=== PATIENT | female | born 1975 ===

== ENCOUNTER 2017-10-19 18:59 | Emergency (ER) | payer MEDICAID ==
[2017-10-19 19:16] VITALS: RESP 16; TEMP 98.4; O2SAT 100
--- NOTE | 2017-10-19 19:41 | ED PDOC ---
HPI: Female Pain Time Seen by Provider: 10/19/17 19:20 Chief Complaint (Nursing): Female Genitourinary Chief Complaint (Provider): Female Genitourinary History Per: Patient History/Exam Limitations: no limitations Onset/Duration Of Symptoms: Days (x2 days) Current Symptoms Are (Timing): Still Present Additional Complaint(s): 42 y/o female with past medical history of hypertension and hypothyroidism presents to the ED complaining of lower abdominal pain x 2 days. Patient also reports frequency and burning during urination. Denies any further medical complaints. PMD: Ajith Bishop MD Past Medical History Reviewed: Historical Data, Nursing Documentation, Vital Signs Vital Signs: Last Vital Signs Temp 98.4 F 10/19/17 19:12 Pulse 92 H 10/19/17 19:12 Resp 16 10/19/17 19:12 BP 177/87 H 10/19/17 19:12 Pulse Ox 100 10/19/17 19:12 - Medical History PMH: HTN, Hypothyroidism Denies: Chronic Kidney Disease - Surgical History Other surgeries: ovary removed for fibroid/removal cancer cells - Family History Family History: States: Unknown Family Hx - Social History Current smoker - smoking cessation education provided: Yes (light smoker >10 cigarettes daily) Alcohol: Social Drugs: Denies - Immunization History Hx Influenza Vaccination: No Hx Pneumococcal Vaccination: No - Home Medications Home Medications: Ambulatory Orders Medication Instructions Recorded Levothyroxine [Synthroid] 0.025 mg PO DAILY 03/15/15 Losartan [Cozaar] 25 mg PO DAILY 03/15/15 Propranolol [Inderal] 20 mg PO DAILY 03/15/15 amLODIPine [Norvasc] 10 mg PO DAILY 07/21/15 Ciprofloxacin [Cipro] 500 mg PO BID #14 mg 07/24/15 Metronidazole [Flagyl] 500 mg PO Q8 #0 tab 07/24/15 Acetaminophen with Codeine 1 tab PO Q6H PRN #15 tab 10/19/17 [Tylenol with Codeine No. 3 300 mg-30 mg] - Allergies Allergies/Adverse Reactions: Allergies Allergy/AdvReac Type Severity Reaction Status Date / Time naproxen Allergy SWELLING Verified 10/19/17 19:17 Review of Systems ROS Statement: Except As Marked, All Systems Reviewed And Found Negative (As per HPI, otherwise negative) Gastrointestinal: Positive for: Abdominal Pain (lower abdominal pain) Genitourinary Female: Positive for: Frequency, Other (burning during urination) Physical Exam - Reviewed Nursing Documentation Reviewed: Yes Vital Signs Reviewed: Yes - Physical Exam Appears: Positive for: Well, Non-toxic, No Acute Distress Head Exam: Positive for: ATRAUMATIC, NORMAL INSPECTION, NORMOCEPHALIC Skin: Positive for: Normal Color, Warm, Dry Cardiovascular/Chest: Positive for: Regular Rate, Rhythm. Negative for: Murmur Respiratory: Positive for: Normal Breath Sounds. Negative for: Accessory Muscle Use, Respiratory Distress Gastrointestinal/Abdominal: Positive for: Normal Exam, Soft. Negative for: Tenderness Neurologic/Psych: Positive for: Alert, Oriented (x3) - ECG O2 Sat by Pulse Oximetry: 100 (RA) Pulse Ox Interpretation: Normal Medical Decision Making Medical Decision Making: Time: 19:35 Plan: Urine dipstick Urine Reevalauation Time: 19:46 Plan: Abd & pelvis w/o IV contrast Urine culture Urinalysis Reevaluation Right ovarian cyst. No torsion. Urine culture pending. Scribe Attestation: Documented by Aliya Andrew acting as a scribe for Valery Edwards MD. Scribe Attestation: All medical record entries made by the Scribe were at my direction and personally dictated by me. I have reviewed the chart and agree that the record accurately reflects my personal performance of the history, physical exam, medical decision making, and the department course for this patient. I have also personally directed, reviewed, and agree with the discharge instructions and disposition. Disposition - Clinical Impression Clinical Impression: Ovarian cyst - Patient ED Disposition Is Patient to be Admitted: No Counseled Patient/Family Regarding: Diagnosis, Need For Followup, Rx Given - Disposition Disposition: Routine/Home Disposition Time: 23:21 Condition: GOOD Prescriptions: Acetaminophen with Codeine [Tylenol with Codeine No. 3 300 mg-30 mg] 1 tab PO Q6H PRN #15 tab PRN Reason: Pain, Severe (8-10) Instructions: Ovarian Cyst (ED) Forms: [employer] (Lao)
[2017-10-19 20:04] LABS: RBC URINE 11 /hpf (0-3); URINE BILIRUBIN NEGATIVE (NEGATIVE); URINE BLOOD SMALL (NEGATIVE); URINE COLOR YELLOW (YELLOW); URINE GLUCOSE (UA) NEG (Normal); URINE KETONE TRACE mg/dL (NEGATIVE); URINE LEUKOCYTE ESTERASE NEG Leu/uL (Negative); URINE PROTEIN 30 mg/dL (NEGATIVE); URINE UROBILINOGEN 0.2-1.0 mg/dL (0.2-1.0); WBC URINE 1 /hpf (0-5)
--- NOTE | 2017-10-19 21:33 | CT ---
EXAM: CT Abdomen and Pelvis Without Intravenous Contrast CLINICAL HISTORY: 42 years old, female; Pain; Abdominal pain; Other: Right sided pain; Prior surgery; Surgery date: 6+ months; Surgery type: Ovary removed for fibroid/removal cancer cells; Additional info: Right sided pain, non-tender, hematuria TECHNIQUE: Axial computed tomography images of the abdomen and pelvis without intravenous contrast. All CT scans at this facility use one or more dose reduction techniques, viz.: automated exposure control; ma/kV adjustment per patient size (including targeted exams where dose is matched to indication; i.e. head); or iterative reconstruction technique. Coronal and sagittal reformatted images were created and reviewed. COMPARISON: No relevant prior studies available. FINDINGS: Lower thorax: The bilateral lung bases are clear. ABDOMEN: Liver: The liver is enlarged and demonstrates diffuse fatty infiltration. Gallbladder and bile ducts: No acute finding. No calcified stones. No intra-extrahepatic biliary ductal dilation. Pancreas: Limited evaluation secondary to the lack of intravenous contrast. Spleen: No acute findings. Adrenals: No acute findings. Kidneys and ureters: No obstructing stones. No hydronephrosis. 13 mm rounded focus of fat attenuation within the left kidney, consistent with a small angiomyolipoma. PELVIS: Bladder: No acute findings. Reproductive: Within the right hemipelvis is a rounded focus of fluid attenuation measuring 6 x 5 cm, statistically a right ovarian cyst. Appendix: The appendix is of normal caliber (series [id number], image 38). ABDOMEN and PELVIS: Stomach and bowel: No acute findings. Peritoneum: No acute findings. Lymph nodes: Limited evaluation without intravenous contrast. Vasculature: No aortic aneurysm. Bones: No acute fracture. IMPRESSION: No obstructive uropathy. Findings within the right hemipelvis most likely representing a right ovarian cyst measuring 6 cm in greatest dimension, for which pelvic ultrasound may be performed for confirmation.
--- NOTE | 2017-10-19 22:54 | US ---
EXAM: US Pelvis Complete, Transabdominal CLINICAL HISTORY: 42 years old, female; Pain; Pelvic pain; Additional info: Right sided pelvic pain, cyst on CT, t/o torsion TECHNIQUE: Real-time transabdominal pelvic ultrasound (complete) with image documentation. COMPARISON: CT - ABD PELVIS W/O PO OR 2017-10-19 20:37 FINDINGS: Uterus/cervix: Unremarkable in echogenicity and size measuring 8.7 x 4.6 x 5.2 cm. Normal endometrial stripe thickness, measuring 7 mm. No myometrial mass. Right ovary: A rounded anechoic focus is identified within the right ovary measuring 5.1 cm in greatest dimension, consistent with a simple cyst. No septations or internal debris are noted. No solid mass. Normal blood flow. Left ovary: Despite prolonged interrogation, the left ovary was not visualized. Free fluid: No free fluid. IMPRESSION: Right ovarian (simple) cyst measuring 5.1 Cm in greatest dimension, corresponding to the recent CT examination, as detailed above.
[2017-10-19 23:34] VITALS: BP 152/95; PULSE 84
[2017-10-19] MEDS ORDERED: Acetaminophen-Codeine 300/30 mg Tab PO STA (23:35)
[2017-10-19] MEDS ORDERED: Acetaminophen-Codeine 300/30 mg Tab ONE (23:37)
== END 2017-10-19 23:40 | disposition home or self-care (01) ==
LOC: H.ER 18:59
DX: N83.201 Unspecified ovarian cyst, right side (principal); Z85.43 Personal history of malignant neoplasm of ovary; E03.9 Hypothyroidism, unspecified; I10 Essential (primary) hypertension; F17.210 Nicotine dependence, cigarettes, uncomplicated